=== PATIENT | female | born 1960 | race Caucasian/White ===

== ENCOUNTER → 2024-02-02 16:43 | Outpatient (REF) | payer BC, SELFPAY | LOC: RAD 16:43 | PROVIDERS: ATTENDING PHYSICIAN Chiropractor; FAMILY PHYSICIAN Internal Medicine | DX: M54.6 Pain in thoracic spine (principal); M99.01 Segmental and somatic dysfunction of cervical region | CPT/HCPCS: 72050; 73030 ==